=== PATIENT | female | born 1965 | race Caucasian/White ===

== ENCOUNTER 2018-05-30 15:52 | Emergency (ER) | payer OTHER ==
[~2018-05-30] VITALS: Ht 134.6 cm; Wt 44.1 kg
[2018-05-30 15:53] VITALS: BP 168/81
[2018-05-30] MEDS ORDERED: LIDOCAINE-MPF 2% ,5ML ONE (16:46)
[2018-05-30] MEDS ORDERED: LIDOCAINE-MPF 2% ,5ML SQ ONE (17:00)
[2018-05-30] MEDS ORDERED: CEFAZOLIN 1,000 MG ONE (17:27)
[2018-05-30] MEDS ORDERED: CEFAZOLIN 1,000 MG IM ONE (17:30)
[2018-05-30] MEDS ORDERED: BACITRACIN ZINC OINT 500U/GM, 0.9 GM ONE ×2 (17:59→18:10)
[2018-05-30] MEDS ORDERED: DIPH,PERTUSS(ACELL),TET VAC/PF 0.5 ML IM-VACC ONE ×2 (18:00→18:26)
== END 2018-05-30 18:42 | disposition home or self-care (01) ==
LOC: ED 18:15
DX: S62.630B Displaced fracture of distal phalanx of right index finger, initial encounter for open fracture (principal); W23.1XXA Caught, crushed, jammed, or pinched between stationary objects, initial encounter; Y93.89 Activity, other specified; Y99.8 Other external cause status; Y92.009 Unspecified place in unspecified non-institutional (private) residence as the place of occurrence of the external cause
CPT/HCPCS: 12042; 73140; 90471; 90715; 96372; 99284; J0690

== ENCOUNTER 2020-01-06 09:19 | Emergency (ER) | payer OTHER ==
[~2020-01-06] VITALS: Ht 152.4 cm; Wt 42.3 kg
[2020-01-06 09:24] VITALS: BP 143/72
== END 2020-01-06 10:46 | disposition home or self-care (01) ==
LOC: ED 10:05
DX: J02.8 Acute pharyngitis due to other specified organisms (principal); Z87.09 Personal history of other diseases of the respiratory system
CPT/HCPCS: 71046; 87081; 87880; 99284